=== PATIENT | male | born 1975 | race Caucasian/White ===

== ENCOUNTER 2017-09-19 10:29 | Outpatient (CLI) | payer BC ==
--- NOTE | 2017-09-19 14:41 | MRI ---
MRI LUMBAR SPINE WITOUT CONTRAST: Multiplanar, multisequential imaging of lumbar spine obtained. HISTORY: Lumbar radiculopathy. Bilateral leg pain. FINDINGS: The lumbar vertebrae maintain normal height and alignment. Disk spaces are maintained. Vertebral christelle dy signal is normal. No significant disk bulge or disk protrusion seen at L1-2, L2-3, or L3-4 levels. No central canal or foraminal stenosis at any of these levels. AT L4-5, small central disk protrusion is seen which mildly indents the anterior thecal sac. Mild fa cet and ligamentous hypertrophy. These changes result in mild to moderate central canal stenosis. At L5-S1, there is a small focal disk protrusion paracentrally on the right which does contact the tr aversing right S1 nerve root. Mild facet arthrosis and hypertrophy. Mild central canal stenosis. IMPRESSION: Small protrusions at L4-5 and L5-S1 as described. POS: CORI
== END 2017-09-19 10:30 | disposition home or self-care (01) ==
LOC: MRI 10:29
PROVIDERS: ATTEND Family Medicine
DX: M51.16 Intervertebral disc disorders with radiculopathy, lumbar region (principal); M51.17 Intervertebral disc disorders with radiculopathy, lumbosacral region
CPT/HCPCS: 72148

== ENCOUNTER 2020-03-14 06:50 | Emergency (ER) | payer BC ==
[2020-03-14 07:29] LABS: #Basophils 0.1 thou/uL (0.0-0.2); #Eosinphils 0.1 thou/uL (0.0-0.7); #Lymphocytes 2.3 thou/uL (1.20-3.40); #Monocytes 1.2 thou/uL (0.11-0.59); #Neutrophils 10.6 thou/uL (1.40-6.50); %Basophils 0.6 % (0.0-1.0); %Eosinophils 0.9 % (0.0-10.0); %Lymphocytes 16.2 % (21.0-51.0); %Monocytes 8.3 % (0.0-10.0); Hemoglobin 15.6 g/dL (14.0-18.0); Mean Corpuscular HGB CONC 33.2 g/dL (32.0-36.0); Mean Corpuscular Hemoglobin 30.1 pg (27.0-31.0); Mean Corpuscular Volume 90.4 fL (78.0-98.0); Mean Platelet Volume 8.2 fL (7.4-10.4); Platelet Count 234 thou/uL (130-400); RBC Distribution Width 12.4 % (11.5-14.5); Red Blood Cell (RBC) Count 5.18 mill/uL (4.70-6.10); White Blood Cell (WBC) Count 14.3 thou/uL (4.8-10.8)
[2020-03-14] MEDS ORDERED: Morphine 4 MG/ML VIAL ONE (07:35)
[2020-03-14] MEDS ORDERED: Ondansetron PF 4 MG/2 ML Vial ONE (07:39)
[2020-03-14 07:50] LABS: ALT (SGPT) 27 U/L (8-55); AST (SGOT) 29 U/L (5-34); Albumin 4.4 g/dL (3.5-5.0); Alkaline Phosphatase 77 U/L (40-110); Anion Gap 14 mmol/L (10-20); BUN (Urea Nitrogen) 11 mg/dL (8.9-20.6); Bilirubin, Total 0.9 mg/dL (0.2-1.2); Calc. Creatinine Clearance 0 mL/min (70-130); Calcium 9.5 mg/dL (7.8-10.44); Carbon Dioxide 26 mmol/L (22-29); Chloride 100 mmol/L (98-107); Estimated GFR-MDRD 52; Globulin 3.2 g/dL (2.4-3.5); Glucose 95 mg/dL (70-105); Lipase 12 U/L (8-78); Potassium 4.3 mmol/L (3.5-5.1); Protein, Total 7.6 g/dL (6.0-8.3); Sodium 136 mmol/L (136-145)
--- NOTE | 2020-03-14 08:23 | CT ---
THORACIC SPINE CT WITHOUT CONTRAST: HISTORY: Right flank pain. Pain began Tuesday. COMPARISON: None. FINDINGS: Visualized mediastinum, solid abdominal viscera do not demonstrate any acute abnormality. There is a hypodensity in the left renal cortex compatible with a 1 cm cyst. The visualized lung parenchyma demonstrates minimal atelectasis and scarring in the right lower lobe. Small pleural-based nodule in the superior segment of the right lower lobe may represent a subpleur al lymph node measuring 0.5 cm. Trachea and central bronchi are patent. There are 12 thoracic-type vertebrae. Thoracic spine vertebral body heights are maintained. There is no fracture. No spondylo listhesis or spondylolysis. Visualized ribs are intact. Limited evaluation of the contents of the central spinal canal and neural foramina due to technique. No significant central canal stenosis or significant neural foraminal narrowing. IMPRESSION: 1. No significant central canal stenosis or significant neural foraminal narrowing. 2. Pleural-based density in the superior segment of the right lower lobe likely representing a subpl eural lymph node. 3. Left renal cortical cyst. POS: PPP
[2020-03-14] MEDS ORDERED: Dexamethasone 10 MG/ML VIAL ONE (08:25)
--- NOTE | 2020-03-14 08:48 | CT ---
LUMBAR SPINE CT WITHOUT CONTRAST: HISTORY: Right flank pain. COMPARISON: None. FINDINGS: On coronal reformatted images, no malalignment. There are 5 lumbar-type vertebrae. Lumbar spine rodney tebral body heights are maintained. No fracture. No spondylolisthesis or spondylolysis. Visualized solid organs do not demonstrate any acute abnormality. A left renal cyst is identified an d incompletely evaluated. No evidence of obstructive uropathy. The visualized alimentary canal is g rossly unremarkable. Symmetric attenuation of the paraspinal muscles. Sacral alae are preserved. Intact sacrum and visualized bony pelvis. Presacral fat is preserved. Limited evaluation of the contents of the central spinal canal and the neural foramina due to techniq ue. T12-L1: No significant central canal stenosis or significant neural foraminal narrowing. L1-L2: Broad-based disk bulge. Mild central canal stenosis. Neural foramen are patent. L2-L3: Broad-based disk bulge abuts the thecal sac. Mild central canal stenosis. Neural foramina a re patent. L3-L4: BROAD-BASED disk bulge, mild ligamentum flavum thickening, and facet hypertrophy result in mi ld central canal stenosis. Mild bilateral neural foraminal narrowing. L4-L5: Broad-based disk bulge, ligamentum flavum thickening, and facet hypertrophy result in moderat e central canal stenosis. Mild to moderate neural foraminal narrowing. L5-S1: Broad-based disk bulge with a right and left subarticular component does cause mass effect an d partial obscuration of bilateral traversing S1 nerve roots, right greater than left. Moderate bila teral foraminal narrowing. IMPRESSION: 1. No fracture. 2. Degenerative changes at L4-L5 and L5-S1 as described above. Better interrogation with repeat lum bar spine MRI can be performed. Correlation made with a lumbar spine MRI 09/19/2017 does demonstrate degenerative change at L4-L5 and L5-S1. POS: PPP
== END 2020-03-14 08:31 | disposition home or self-care (01) ==
LOC: ERS 06:50
DX: M51.36 Other intervertebral disc degeneration, lumbar region (principal); R10.9 Unspecified abdominal pain; R10.811 Right upper quadrant abdominal tenderness; F17.210 Nicotine dependence, cigarettes, uncomplicated
CPT/HCPCS: 72128; 72131; 80053; 83690; 85025; 96374; 96375; J1100; J2270; J2405